=== PATIENT | female | born 1960 | race Caucasian/White ===

== ENCOUNTER 2019-04-28 20:36 | Inpatient (IN) | payer OTHER ==
[~2019-04-28] VITALS: Ht 157.5 cm; Wt 61.2 kg
[2019-04-28 20:38] VITALS: BP 115/71
[2019-04-28 21:14] LABS: BASOPHILS % (AUTO) 0.6 % (0.0-2.0); EOSINOPHILS % (AUTO) 0.6 % (0.0-4.0); HEMATOCRIT 35.3 % (36-48); HEMOGLOBIN 11.5 g/dL (12.0-16.0); LYMPHOCYTES # (AUTO) 1.1 K/uL (2.5-16.5); LYMPHOCYTES % (AUTO) 16.4 % (20.5-51.1); MEAN CORPUSCULAR HEMOGLOBIN 27 pg (27-31); MEAN CORPUSCULAR HGB CONC 33 g/dL (33-37); MEAN CORPUSCULAR VOLUME 82.5 fL (80-94); MONOCYTES # (AUTO) 0.5 K/uL (0.8-1.0); NEUTROPHILS # (AUTO) 4.9 K/uL (1.8-7.7); NEUTROPHILS % (AUTO) 74.4 % (42.2-75.2); PLATELET COUNT (AUTO) 306 K/uL (140-450); RED BLOOD CELL COUNT(AUTO) 4.28 MIL/uL (4.20-5.40); RED CELL DISTRIBUTION WIDTH 14.5 % (11.6-13.7); WHITE BLOOD COUNT (AUTO) 6.6 K/uL (4.8-10.8)
--- NOTE | 2019-04-28 21:19 | NUR ---
PT AMBULATED TO BED 07
--- NOTE | 2019-04-28 21:25 | NUR ---
PATIENT PRESENTS TO ED WITH C/O BLE EDEMA X 1 MONTH . PT STATES SHE WAS REFERRED BY PCP FOR ELEVATED POTASSIUM LEVELS .PATIENT DENIES ANY KIDNEY/CARDIAC HX, NO DIABETES. PATIETN DENIES N/V/D; SKIN IS PINK/WARM/DRY; AAOX4 WITH EVEN AND STEADY GAIT; LUNGS CLEAR BL; HR EVEN AND REGULAR; PT DENIES ANY FEVER, CP, SOB, OR COUGH AT THIS TIME; PATIENT STATES PAIN OF 0/10 AT THIS TIME; VSS; PATIENT POSITIONED FOR COMFORT; HOB ELEVATED; BEDRAILS UP X2; BED DOWN. ER MD MADE AWARE OF PT STATUS.
[2019-04-28 21:31] LABS: CARBON DIOXIDE 24.6 mmol/L (21-32); CREATININE 1.1 mg/dL (0.6-1.3); POTASSIUM 3.6 mmol/L (3.5-5.1)
[2019-04-28 21:37] LABS: ALBUMIN 2.4 g/dL (3.4-5.0); TOTAL BILIRUBIN 0.4 mg/dL (0.0-1.0)
[2019-04-28 21:55] LABS: APPEARANCE,URINE HAZY (CLEAR); BILIRUBIN,URINE NEGATIVE (NEGATIVE); BLOOD, URINE NEGATIVE (NEGATIVE); COLOR,URINE YELLOW (YELLOW); LEUKOCYTE ESTERASE ,URINE TRACE (NEGATIVE); NITRITE, URINE NEGATIVE (NEGATIVE); PH,URINE 5.5 (5.0-9.0); UGLUCOSE NEGATIVE (NEGATIVE)
[2019-04-28] MEDS ORDERED: IPRATROPIUM 0.02% 0.5 MG/2.5 ML NEBU INH PRN (22:45)
[2019-04-28] MEDS ORDERED: MAG SULF 2000 MG/WATER PREMIX 50 ML IV PRN (22:45)
[2019-04-28] MEDS ORDERED: MAGNESIUM OXIDE 400 MG TAB PO PRN (22:45)
[2019-04-28] MEDS ORDERED: SODIUM PHOSPHATE 118 ML ENEM RC PRN (22:45)
[2019-04-28] MEDS ORDERED: BISACODYL 10 MG SUPP RC PRN (22:45)
[2019-04-28] MEDS ORDERED: ACETAMINOPHEN 325 MG TAB PO PRN (22:45)
[2019-04-28] MEDS ORDERED: ALUMINUM HYD/MAG/SIMETHICONE 30 ML UDC PO PRN (22:45)
[2019-04-28] MEDS ORDERED: ONDANSETRON 4 MG/2 ML VIAL IVP PRN (22:45)
[2019-04-28] MEDS ORDERED: POTASSIUM CHLORIDE 40 MEQ, LIDOCAINE 1% 25 MG in NACL 0.9% 250 ML IV PRN (22:45)
[2019-04-28] MEDS ORDERED: LORazepam 2 MG/ML VIAL IVP PRN (22:45)
[2019-04-28] MEDS ORDERED: MORPHINE SULFATE 2 MG/ML SYR IVP PRN (22:45)
[2019-04-28] MEDS ORDERED: cloNIDine 0.1 MG TAB PO PRN (22:45)
[2019-04-28] MEDS ORDERED: ALBUTEROL 0.083% 2.5 MG/3 ML NEBU INH PRN (22:45)
[2019-04-28] MEDS ORDERED: HYDROcodone/APAP 5/325 MG 1 TAB TAB PO PRN ×2 (22:45)
[2019-04-28] MEDS ORDERED: ACETAMINOPHEN 650 MG SUPP RC PRN (22:45)
[2019-04-28] MEDS ORDERED: ZOLPIDEM 5 MG TAB PO PRN (22:45)
[2019-04-28] MEDS ORDERED: POTASSIUM CHLORIDE 10 MEQ TABER PO PRN (22:45)
[2019-04-28] MEDS ORDERED: DOCUSATE SODIUM 250 MG GELCAP PO PRN (22:45)
[2019-04-28] MEDS ORDERED: guaiFENesin DM 200/20 MG-10 ML 10 ML UDC PO PRN (22:45)
[2019-04-28] MEDS ORDERED: diphenhydrAMINE 50 MG/ML VIAL IVP PRN (22:45)
--- NOTE | 2019-04-28 22:51 | NUR ---
RECEIVED BEDSIDE REPORT FROM MANAGER SUPPLY CHAIN PLANNING MIKE. PT A/O X4. DISCUSSED PLAN OF CARE WITH PT. ABLE TO MAKE NEEDS KNOWN. VERBALIZED UNDERSTANDING. STD PRECAUTIONS. NO SIGNS OF RESP DISTRESS. DENIES CHEST PAIN. ROOM AIR. SKIN INTACT. BLE EDEMA +2 NOTED. L AC 20 G. IV SITE PATENT AND INTACT. VITALS TAKEN. ARE WITHIN NORMAL LIMITS. PT ABLE TO AMBULATE. STEADY GAIT. BED IN LOW POSITION. CALL LIGHT WITHIN REACH. WILL CONTINUE TO MONITOR.
--- NOTE | 2019-04-28 22:52 | NUR ---
Patient will be admitted to care of DR SAM. Admited to TELE. Will go to room 121A. Belongings list completed. Report to DARLYN MAGANA .
--- NOTE | 2019-04-28 23:20 | NUR ---
RECEIVED CALL FROM LAB TO HAVE PT NPO AFTER MIDNIGHT FOR ULTRASOUND ABD IN THE AM. PT MADE AWARE OF MORNING TEST. VERBALIZED UNDERSTANDING. WILL CONTINUE TO MONITOR.
[2019-04-28 23:24] LABS: FREE T4 (FREE THYROXINE) 0.86 ng/dL (0.76-1.46)
[2019-04-28 23:46] LABS: THYROID STIMULATING HORMONE 2.3 uIU/mL (0.34-3.74)
[2019-04-29] VITALS: BP 117/66
--- NOTE | 2019-04-29 | NUR ---
VITALS TAKEN. TOLERATED WELL. DENIES CHEST PAIN. NO COMPLAINTS AT THIS TIME. VITALS WNL. WILL CONTINUE TO MONITOR.
--- NOTE | 2019-04-29 01:18 | NUR ---
PT STATES SHE WANTS FULL CODE STATUS. ORDER PUT FOR FULL CODE STATUS. WILL CONTINUE TO MONITOR.
--- NOTE | 2019-04-29 03:05 | NUR ---
PT SLEEPING IN BED EASILY AROUSABLE. EVEN CHEST RISE. NO SIGNS OF DISTRESS. NO SOB. DENIES PAIN. WILL CONTINUE TO MONITOR.
[2019-04-29 04:00] VITALS: BP 107/69
--- NOTE | 2019-04-29 05:15 | NUR ---
PATIENT AWAKE IN BED. LAB DRAW AT THIS MOMENT. EDUCATED AND TOLERATED WELL. NO COMPLAINTS AT THIS TIME. DENIES CHEST PAIN. NO SOB. NO SIGNS OF RESP DISTRESS. WILL CONTINUE TO MONITOR.
--- NOTE | 2019-04-29 07:28 | NUR ---
ENDORSED PT TO DAYSHIFT CHINO KNOWLES. PT IN STABLE CONDITION.
--- NOTE | 2019-04-29 07:29 | NUR ---
RECEIVED BEDSIDE REPORT FROM NIGHT NURSE. PT IS RESTING IN BED AOX4 WITH NO SIGNS OF DISTRESS BREATHING UNLABORED. PT HAS LEFT ANTECUBITAL IV SITE PATENT AND ASYMPTOMATIC SALINE LOCKED. ALL SAFETY MEASURES IN PLACE WITH CALL LIGHT WITHIN REACH.
[2019-04-29 08:00] VITALS: BP 109/62
--- NOTE | 2019-04-29 08:04 | NUR ---
PATIENT HAS BEEN SCREENED AND CATEGORIZED MODERATE NUTRITION RISK. PATIENT WILL BE SEEN WITHIN 3-5 DAYS OF ADMISSION. 05/01/[address]
--- NOTE | 2019-04-29 09:20 | NUR ---
PT RESTING IN BED NO REQUESTS OR DISTRESS AT THIS TIME.
--- NOTE | 2019-04-29 10:40 | NUR ---
PT RESTING IN BED WITH NO REQUESTS NO SIGNS OF DISTRESS AND BREATHING UNLABORED.
--- NOTE | 2019-04-29 11:50 | NUR ---
PT STANDING BY BEDSIDE ORGANIZING HER POSSESSIONS. HAS NO REQUESTS AND NO OBVIOUS SIGNS OF DISTRESS.
[2019-04-29 12:00] VITALS: BP 115/72
--- NOTE | 2019-04-29 13:40 | NUR ---
PT HAS NO OBVIOUS SIGNS OF DISTRESS. PT RESTING IN BED WITH NO REQUESTS. CLARIFIED BY ASKING DR. ARMENDARIZ IF HE WANTED TO NOT DRAW LABS FOR TODAY. HE STATES ITS FINE TO NOT DRAW ANY LABS FOR TODAY.
--- NOTE | 2019-04-29 15:45 | NUR ---
PT RESTING IN BED DENIES ANY REQUESTS FOR ANYTHING AT THIS TIME.
[2019-04-29 16:00] VITALS: BP 108/70
--- NOTE | 2019-04-29 16:40 | NUR ---
PT DENIES ANY REQUESTS AT THIS TIME. IS FREE OF SIGNS OF OBVIOUS DISTRESS.
--- NOTE | 2019-04-29 18:19 | NUR ---
BROUGHT ICE AND WATER TO PT FOR HER AND HER TWO VISITORS. PT HAS NO OTHER REQUESTS AT THIS TIME AND IS FREE OF OBVIOUS SIGNS OF DISTRESS.
--- NOTE | 2019-04-29 19:05 | NUR ---
GAVE BEDSIDE REPORT TO NIGHT NURSE. PT IN STABLE CONDITION
--- NOTE | 2019-04-29 19:20 | NUR ---
RECEIVED BEDSIDE REPORT FROM DAY SHIFT NURSE. PATIENT IS AWAKE, ALERT, AND COOPERATIVE. FAMILY AT BEDSIDE. RESPIRATION EVEN UNLABORED ON ROOM AIR. NO DISTRESS NOTED. SKIN IS WARM AND DRY. IV PATENT AND INTACT. DENIES PAIN. PATIENT IS AMBULATORY AND ABLE TO MAKE NEEDS KNOWN. ALL SAFETY MEASURES IN PLAN. PLAN OF CARE WAS DISCUSSED. BED IS AT LOW POSITION. CALL LIGHT WITHIN REACH AND VERBALIZES ITS USE. WILL CONTINUE TO MONITOR.
[2019-04-29 20:00] VITALS: BP 93/61
--- NOTE | 2019-04-29 20:00 | NUR ---
INITIAL ASSESSMENT DONE. VITALS WERE TAKEN. PATIENT CONDITION STABLE. NO DISTRESS NOTED. WILL CONTINUE TO MONITOR.
--- NOTE | 2019-04-29 23:00 | NUR ---
PATIENT SLEEPING RESPIRATION EVEN UNLABORED ON ROOM AIR. NO DISTRESS NOTED. WILL CONTINUE TO MONITOR.
[2019-04-30] VITALS: BP 102/65
--- NOTE | 2019-04-30 | NUR ---
VITALS WERE TAKEN. PATIENT CONDITION STABLE. NO DISTRESS NOTED. WILL CONTINUE TO MONITOR.
--- NOTE | 2019-04-30 02:00 | NUR ---
CHECKED PATIENT. PATIENT SLEEPING RESPIRATION EVEN UNLABORED ON ROOM AIR. NO DISTRESS NOTED. WILL CONTINUE TO MONITOR.
[2019-04-30 04:00] VITALS: BP 93/61
--- NOTE | 2019-04-30 04:00 | NUR ---
VITALS WERE TAKEN. PATIENT CONDITION STABLE. NO DISTRESS NOTED. WILL CONTINUE TO MONITOR.
[2019-04-30 07:12] LABS: HEPATITIS B CORE AB TOTAL Negative (Negative)
--- NOTE | 2019-04-30 07:22 | NUR ---
ENDORSED PATIENT TO DAY SHIFT NURSE FOR CONTINUITY OF CARE. PATIENT CONDITION IS STABLE.
--- NOTE | 2019-04-30 07:23 | NUR ---
RECEIVED ENDORSEMENT FROM FIELD STAFF MANAGER NURSE. PATIENT IS AAOX4, M[place]CC[place] SPEAKING. RESPIRATIONS ARE EVEN AND UNLABORED ON ROOM AIR. PATIENT DENIES ANY PAIN AT THIS TIME. LEFT AC 20G IV INTACT AND SL. PLAN OF CARE WAS REVIEWED WITH PATIENT. PATIENT VERBALIZED UNDERSTANDING. SAFETY MEASURES IN PLACE, CALL LIGHT WITHIN REACH.
[2019-04-30 08:00] VITALS: BP 106/58
--- NOTE | 2019-04-30 09:04 | NUR ---
PATIENT SITTING IN BED CALMLY. DENIES ANY PAIN. NO OTHER NEEDS AT THIS TIME.
--- NOTE | 2019-04-30 09:46 | NUR ---
PATIENT RESTING IN BED. DENIES ANY PAIN AT THIS TIME. NO OTHER NEEDS AT THIS TIME. WILL CONTINUE TO MONITOR.
[2019-04-30 10:54] LABS: BASOPHILS # (AUTO) 0.1 K/uL (0.00-0.22); BASOPHILS % (AUTO) 0.7 % (0.0-2.0); EOSINOPHILS # (AUTO) 0.1 K/uL (0-0.4); EOSINOPHILS % (AUTO) 1.4 % (0.0-4.0); HEMATOCRIT 36.8 % (36-48); LYMPHOCYTES # (AUTO) 1.4 K/uL (2.5-16.5); LYMPHOCYTES % (AUTO) 17.4 % (20.5-51.1); MEAN CORPUSCULAR HEMOGLOBIN 27 pg (27-31); MEAN CORPUSCULAR HGB CONC 33 g/dL (33-37); MEAN CORPUSCULAR VOLUME 82.5 fL (80-94); MONOCYTES # (AUTO) 0.6 K/uL (0.8-1.0); MONOCYTES % (AUTO) 7.6 % (1.7-9.3); NEUTROPHILS # (AUTO) 5.9 K/uL (1.8-7.7); NEUTROPHILS % (AUTO) 72.9 % (42.2-75.2); PLATELET COUNT (AUTO) 286 K/uL (140-450); RED BLOOD CELL COUNT(AUTO) 4.46 MIL/uL (4.20-5.40); RED CELL DISTRIBUTION WIDTH 14.3 % (11.6-13.7); WHITE BLOOD COUNT (AUTO) 8.1 K/uL (4.8-10.8)
[2019-04-30 11:10] LABS: ALBUMIN 2.2 g/dL (3.4-5.0); ANION GAP 8.9 (8-16); CARBON DIOXIDE 27.5 mmol/L (21-32); MAGNESIUM 2.1 mg/dL (1.8-2.4); POTASSIUM 4.4 mmol/L (3.5-5.1); TOTAL BILIRUBIN 0.3 mg/dL (0.0-1.0)
--- NOTE | 2019-04-30 11:50 | NUR ---
PATIENT RESTING IN BED. FAMILY IS PRESENT AT BEDSIDE. PATIENT DENIES PAIN AT THIS TIME. NO OTHER NEEDS AT THIS TIME.
[2019-04-30 12:00] VITALS: BP 104/74
--- NOTE | 2019-04-30 13:15 | NUR ---
PATIENT RESTING IN BED. FAMILY PRESENT AT BEDSIDE. NO OTHER NEEDS AT THIS TIME.
--- NOTE | 2019-04-30 15:20 | NUR ---
RECEIVED MD ORDERS. AWAITING US OF LE. PATIENT IS RESTING IN BED. DENIES ANY PAIN AT THIS TIME. NO OTHER NEEDS AT THIS TIME.
[2019-04-30 16:00] VITALS: BP 106/59
--- NOTE | 2019-04-30 17:44 | NUR ---
PATIENT RESTING IN BED. FAMILY IS PRESENT AT THE BEDSIDE. NO OTHER NEEDS AT THIS TIME.
--- NOTE | 2019-04-30 18:20 | NUR ---
RECEIVED LE VENOUS DOPPLER US RESULTS AT 1814 BY KATIE. POORNIMA CLEMENTS IRON HANDLER FOR DR. ARMENDARIZ. PENDING CALL BACK FOR ORDERS.
--- NOTE | 2019-04-30 19:00 | NUR ---
RECEIVED BEDSIDE REPORT FROM DAY SHIFT NURSE. PATIENT IS AWAKE, ALERT, AND COOPERATIVE. RESPIRATION EVEN UNLABORED ON ROOM AIR. NO DISTRESS NOTED. SKIN IS WARM AND DRY. IV PATENT AND INTACT. PLAN OF CARE WAS DISCUSSED. ALL SAFETY MEASURES IN PLACE. BED IS AT LOW POSITION. CALL LIGHT WITHIN REACH AND VERBALIZES ITS USE. WILL CONTINUE TO MONITOR.
--- NOTE | 2019-04-30 19:16 | NUR ---
ENDORSED TO LAST PULLER NURSE FOR CONTINUITY OF CARE. PATIENT IS STABLE AT THIS TIME.
[2019-04-30 20:00] VITALS: BP 92/61
--- NOTE | 2019-04-30 20:00 | NUR ---
INITIAL ASSESSMENT DONE. VITALS WERE TAKEN. NO DISTRESS NOTED. WILL CONTINUE TO MONITOR.
--- NOTE | 2019-04-30 21:00 | NUR ---
ALL SCHEDULE MEDS WERE GIVEN NO ASE NOTED. WILL CONTINUE TO MONITOR.
[2019-04-30] MEDS: APIXABAN 2.5 MG TAB PO SCH (21:03)
--- NOTE | 2019-04-30 23:00 | NUR ---
PATIENT IN BED SLEEPING RESPIRATION EVEN UNLABORED ON ROOM AIR. NO DISTRESS NOTED. WILL CONTINUE TO MONITOR.
[2019-05-01] VITALS: BP 92/59
--- NOTE | 2019-05-01 | NUR ---
VITALS WERE TAKEN. PATIENT CONDITION STABLE. NO DISTRESS NOTED. WILL CONTINUE TO MONITOR.
--- NOTE | 2019-05-01 02:00 | NUR ---
CHECKED PATIENT. PATIENT SLEEPING RESPIRATION EVEN UNLABORED ON ROOM AIR. NO DISTRESS NOTED. WILL CONTINUE TO MONITOR.
[2019-05-01 04:00] VITALS: BP 102/63
--- NOTE | 2019-05-01 04:00 | NUR ---
VITALS WERE TAKEN. PATIENT CONDITION STABLE. NO DISTRESS NOTED. WILL CONTINUE TO MONITOR.
--- NOTE | 2019-05-01 07:23 | NUR ---
ENDORSED PATIENT TO DAY SHIFT NURSE FOR CONTINUITY OF CARE. PATIENT CONDITION STABLE.
--- NOTE | 2019-05-01 07:24 | NUR ---
RECEIVED ENDORSEMENT FROM SHOW HOST NURSE. PATIENT IS AAOX4, ESTONIAN SPEAKING. RESPIRATIONS ARE EVEN AND UNLABORED ON ROOM AIR. PATIENT DENIES ANY PAIN AT THIS TIME. LEFT AC IV INTACT AND SL. PLAN OF CARE WAS REVIEWED WITH PATIENT. PATIENT VERBALIZED UNDERSTANDING. SAFETY MEASURES IN PLACE, CALL LIGHT WITHIN REACH.
[2019-05-01 08:00] VITALS: BP 109/64
[2019-05-01] MEDS: APIXABAN 2.5 MG TAB PO SCH (09:10)
--- NOTE | 2019-05-01 09:10 | NUR ---
ADMINISTERED SCHEDULED MEDICATIONS. PATIENT IS RESTING IN BED. DENIES PAIN AT THIS TIME. NO OTHER NEEDS AT THIS TIME.
[2019-05-01] MEDS ORDERED: APIX2.5 PO (10:09)
[2019-05-01 10:44] LABS: BASOPHILS # (AUTO) 0.1 K/uL (0.00-0.22); BASOPHILS % (AUTO) 1.1 % (0.0-2.0); EOSINOPHILS # (AUTO) 0.1 K/uL (0-0.4); EOSINOPHILS % (AUTO) 1.2 % (0.0-4.0); HEMATOCRIT 35.3 % (36-48); HEMOGLOBIN 11.5 g/dL (12.0-16.0); LYMPHOCYTES # (AUTO) 0.8 K/uL (2.5-16.5); LYMPHOCYTES % (AUTO) 11.5 % (20.5-51.1); MEAN CORPUSCULAR HEMOGLOBIN 27 pg (27-31); MEAN CORPUSCULAR HGB CONC 33 g/dL (33-37); MEAN CORPUSCULAR VOLUME 82.1 fL (80-94); MONOCYTES # (AUTO) 0.5 K/uL (0.8-1.0); MONOCYTES % (AUTO) 6.6 % (1.7-9.3); NEUTROPHILS # (AUTO) 5.6 K/uL (1.8-7.7); NEUTROPHILS % (AUTO) 79.6 % (42.2-75.2); PLATELET COUNT (AUTO) 258 K/uL (140-450); RED CELL DISTRIBUTION WIDTH 14.1 % (11.6-13.7)
[2019-05-01 11:08] LABS: ALBUMIN 1.9 g/dL (3.4-5.0); ANION GAP 9.3 (8-16); CARBON DIOXIDE 28.9 mmol/L (21-32); CREATININE 0.9 mg/dL (0.6-1.3); MAGNESIUM 2.1 mg/dL (1.8-2.4); POTASSIUM 4.2 mmol/L (3.5-5.1); TOTAL BILIRUBIN 0.4 mg/dL (0.0-1.0)
--- NOTE | 2019-05-01 11:30 | NUR ---
PATIENT RESTING IN BED. DENIES ANY PAIN AT THIS TIME. NO OTHER NEEDS AT THIS TIME.
[2019-05-01 12:00] VITALS: BP 105/51
--- NOTE | 2019-05-01 13:00 | NUR ---
PER DR. SANDOVAL, CALLED PATIENT'S PHARMACY TO SEE IF INSURANCE WILL COVER IT. FAXED PRESCRIPTION TO PHARMACY, AWAITING CALL BACK. Addendum: 05/01/19 at 1352 by Missy Blunt RN PATIENT IS AWARE. STILL SITTING IN BED, NO DISTRESS NOTED. NO OTHER NEEDS AT THIS TIME.
--- NOTE | 2019-05-01 15:11 | NUR ---
CALLED [facility], THEY STATED THEY DO NOT HAVE PATIENTS INSURANCE ON FILE. PATIENT IS AWARE. SON IS TO TAKE INSURANCE TO PHARMACY. WILL FOLLOW UP.
[2019-05-01 16:00] VITALS: BP 111/68
[2019-05-01] MEDS ORDERED: RIVA15TA1 PO (17:26)
--- NOTE | 2019-05-01 17:32 | NUR ---
PATIENT RESTING IN BED, AT BEDSIDE. NO OTHER NEEDS AT THIS TIME.
--- NOTE | 2019-05-01 18:15 | NUR ---
DISCHARGE INSTRUCTIONS GIVEN TO PATIENT. PATIENT VERBALIZED UNDERSTANDING. ALL QUESTIONS AND CONCERNS ANSWERED. IV WAS DISCONTINUED, CANNULA IS INTACT WITH MINIMAL BLEEDING.
--- NOTE | 2019-05-01 18:44 | NUR ---
PATIENTS ID BAND WAS REMOVED. ALL BELONGINGS LEFT WITH PATIENT. PATIENT AMBULATED WITH STEADY GAIT OFF UNIT. PATIENT IS STABLE AT THIS TIME.
[2019-05-01] MEDS ORDERED: RIVAROXABAN 15 MG TAB PO SCH (21:00)
[2019-05-02 09:07] LABS: LACTATE DEHYDROGENASE 225 IU/L (119-226)
[2019-05-03 09:06] LABS: HEPATITIS B SURFACE ANTIGEN Negative (Negative)
[2019-05-03 12:35] LABS: CERULOPLASMIN 15.1 mg/dL (19.0-39.0)
[2019-05-03 15:07] LABS: ANTI-NUCLEAR ANTIBODY TITER Negative (.)
[2019-05-04 07:09] LABS: LD1 FRACTION 25 % (17-32); LD2 FRACTION 38 % (25-40); LD3 FRACTION 20 % (17-27); LD4 FRACTION 7 % (5-13); LD5 FRACTION 10 % (4-20)
--- NOTE | 2019-05-05 11:19 | NUR ---
SW attempted to contact patient at [phone] to inform her of PCP appointment with Dr. Everardo Rodriguez on 05/25/2019 at 9:30AM. Patient will be seen at [address] [place] [address]. Contact information to PCP is [phone]. SW left voicemail to patient. QUINCY/CM will follow up as needed.
--- NOTE | 2019-05-05 13:29 | NUR ---
SW spoke to patient regarding follow-up appointment on 05/25/2019 at 9:30AM with PCP Dr. Everardo Rodriguez. Patient verbalized appreciation and understanding. SW/CM will follow up as needed.
[2019-05-07] MEDS ORDERED: APIXABAN 2.5 MG TAB PO SCH (09:00)
== END 2019-05-01 18:45 | disposition home or self-care (01) | DRG 197 ==
LOC: MED 20:36 → MTU 22:24
PROVIDERS: ADMIT Internal Medicine Pulmonary Disease; ATTEND Internal Medicine Pulmonary Disease
DX: I82.401 Acute embolism and thrombosis of unspecified deep veins of right lower extremity (principal); E43 Unspecified severe protein-calorie malnutrition; R74.0 Nonspecific elevation of levels of transaminase and lactic acid dehydrogenase [LDH]; Z90.49 Acquired absence of other specified parts of digestive tract; Z98.84 Bariatric surgery status
CPT/HCPCS: 36415; 76700; 80053; 81003; 82103; 82390; 82728; 82977; 83516; 83625; 83735; 84439; 84443; 84484; 85025; 86038; 86704; 86708; 86803; 87081; 87340; 93005; 93970; 99285; Q0092